=== PATIENT | female | born 1965 | race Caucasian/White ===

== ENCOUNTER → 2016-07-02 | Outpatient (CLI) | payer BC ==
--- NOTE | 2016-07-02 12:52 | MM ---
Reason for exam: history of breast cancer, mastectomy. Last mammogram was performed 6 months ago. History: Patient is postmenopausal, has history of breast cancer at age 35, has history of high-risk lesion on a previous biopsy at age 35, and had first child at age 34. High risk US biopsy breast VAD RT of the right breast, January 11, 2016. MRI-guided biopsy of the right breast, January 2007. Benign core biopsy of the right breast, January 21, 2007. Mastectomy of the left breast, November 2004. Left Mammotome Panel of the left breast, November 15, 2004. Saline implant in the left breast, 2004. Malignant lumpectomy of the left breast, March 26, 2001. High risk stereotactic core biopsy of the left breast, March 13, 2001. Radiation therapy of the left breast. Took hormonal contraceptives for 8 years beginning at age 20. Took tamoxifen for 5 years 6 months beginning at age 34. Took unspecified hormones for 11 years beginning at age 29. Physical Findings: Nurse did not find any significant physical abnormalities on exam. MG Diagnostic Mammo RT w CAD CC and MLO view(s) were taken of the right breast. Prior study comparison: January 11, 2016, right breast MG diagnostic mammo RT wo CAD. June 29, 2015, right breast MG 3d diag mammo w/cad RT. June 29, 2015, right breast US breast limited RT. June 23, 2014, right breast MG diagnostic mammo RT w CAD. May 27, 2013, right diagnostic mammogram w/CAD. The breast tissue is extremely dense which could obscure a lesion on mammography. Finding #1: Architectural distortion in the upper outer quadrant of the right breast consistent with known lumpectomy. Finding #2: There are typically benign round, diffuse/scattered and grouped calcifications in the right breast. Previous mammotome biopsy in the right breast x 2. There is no discrete abnormality. These results were verbally communicated with the patient and result sheet given to the patient on 07/02/16. ASSESSMENT: Benign, BI-RAD 2 RECOMMENDATION: Follow-up diagnostic mammogram of the right breast in 1 year.
== END | disposition home or self-care (01) ==
LOC: RADMAMWWP 10:55
PROVIDERS: ATTEND Surgery
DX: Z08 Encounter for follow-up examination after completed treatment for malignant neoplasm (principal); Z85.3 Personal history of malignant neoplasm of breast

== ENCOUNTER → 2017-07-08 | Outpatient (CLI) | payer BC ==
--- NOTE | 2017-07-08 13:03 | MM ---
Reason for exam: additional evaluation requested from prior study. Last mammogram was performed 1 year ago. History: Patient is postmenopausal, has history of breast cancer at age 35, has history of high-risk lesion on a previous biopsy at age 35, and had first child at age 34. High risk US biopsy breast VAD RT of the right breast, January 11, 2016. MRI-guided biopsy of the right breast, January 2007. Benign core biopsy of the right breast, January 21, 2007. Mastectomy of the left breast, November 2004. Left Mammotome Panel of the left breast, November 15, 2004. Saline implant in the left breast, 2004. Malignant lumpectomy of the left breast, March 26, 2001. High risk stereotactic core biopsy of the left breast, March 13, 2001. Radiation therapy of the left breast. Took hormonal contraceptives for 8 years beginning at age 20. Took tamoxifen for 5 years 6 months beginning at age 34. Took unspecified hormones for 11 years beginning at age 29. Physical Findings: Nurse did not find any significant physical abnormalities on exam. MG 3D Diag Mammo W/Cad RT CC and MLO view(s) were taken of the right breast. Prior study comparison: July 02, 2016, right breast MG diagnostic mammo RT w CAD. January 11, 2016, right breast MG diagnostic mammo RT wo CAD. Finding: There are increased round, heterogeneous, grouped/clustered calcifications in the right breast, 5cm from the nipple. Previous mammotome biopsy in the right breast x 2. New finding since July 02, 2016 and January 11, 2016. These results were verbally communicated with the patient and result sheet given to the patient on 07/08/17. ASSESSMENT: Suspicious, BI-RAD 4 RECOMMENDATION: Surgical consultation and stereotactic core biopsy of the right breast. Called Dr. Lugo with mammographic findings and has scheduled an appointment for the patient for 07/16/17 at 10:[address] Whelan. PRELIMINARY REPORT CALLED AND FAXED TO DR. WHELAN ON 07/08/17.
== END | disposition home or self-care (01) ==
LOC: RADMAMWWP 10:51
PROVIDERS: ATTEND Obstetrics & Gynecology
DX: R92.8 Other abnormal and inconclusive findings on diagnostic imaging of breast (principal)
CPT/HCPCS: 77065; G0279

== ENCOUNTER → 2017-09-09 | Day surgery (SDC) | payer BC ==
[2017-09-09 13:45] VITALS: RESP 14; TEMP 98.3; BMI 21.9
[2017-09-09 15:59] VITALS: BP 116/68; PULSE 58
--- NOTE | 2017-09-11 09:29 | MM ---
EXAMINATION TYPE: MG stereo VAD BX RT DATE OF EXAM: 09/09/2017 COMPARISON: Exams dating back to 01/11/2016 CLINICAL HISTORY: Indeterminate right breast calcifications for which stereotactic biopsy was recomme nded. TECHNIQUE: Stereotactic guided core biopsy of right breast. FINDINGS: The procedure of stereotactic guided core biopsy was explained to the patient. Benefits, a lternatives, and risks were discussed. An informed consent was then obtained. A procedural timeout was performed. [facility]. Shortness pathway was lateral medial approach, however the calcifications were close to the skin surface and unable to be performed in this direction theref ore CC from above approach was subsequently chosen. Again the calcifications were very superficial an d difficult to target, however appropriate placement was achieved after multiple attempts. 10 cc of lidocaine without epinephrine was utilized to anesthetize the skin surface and subcutaneous tissues. Prefire images were obtained ensuring accurate localization. A vacuum assisted biopsy gun was used to obtain 4 core samples. The patient tolerated the procedure well without any immediate complication. The patient was kept in the radiology department for short stay after the procedure and then discharged home in stable condi tion. Few targeted calcifications are identified in specimen mammogram. Initial biopsy marker did no t appear to the poorly therefore a second biopsy marker adjacent to this was placed. On postprocedura l images to adjacent biopsy markers are seen indicating the site of biopsy. Post biopsy mammogram tasia ws the biopsy markers to appear in satisfactory position relative to the targeted area of concern on the preprocedure images. IMPRESSION: SUCCESSFUL, UNCOMPLICATED STEREOTACTIC GUIDED CORE BIOPSY OF SUPERFICIAL OR PELVIC CALCIFICATIONS WIT HIN THE RIGHT BREAST, FULL PATHOLOGY RESULTS TO FOLLOW. NOTE THAT ONLY FEW CALCIFICATIONS WERE IDENT IFIED IN THE SPECIMEN RADIOGRAPH, HOWEVER GIVEN THEIR SUPERFICIAL LOCATION AND PROXIMITY OF THE [facility] [place] [facility] TO THE SKIN SURFACE NO ADDITIONAL CORES WERE OBTAINED.
== END ==
LOC: RADMAMWWP 13:05
PROVIDERS: ATTEND Student in an Organized Health Care Education/Training Program
DX: R92.1 Mammographic calcification found on diagnostic imaging of breast (principal); Z85.3 Personal history of malignant neoplasm of breast; Z90.12 Acquired absence of left breast and nipple
CPT/HCPCS: 88305; 19081; A4648; J2001

== ENCOUNTER → 2018-03-17 | Outpatient (CLI) | payer BC ==
--- NOTE | 2018-03-17 11:31 | MM ---
Reason for exam: follow-up at short interval from prior study. Last mammogram was performed 8 months ago. History: Patient is postmenopausal, has history of breast cancer at age 35, has history of high-risk lesion on a previous biopsy at age 35, and had first child at age 34. Benign MG stereo VAD BX RT of the right breast, September 09, 2017. High risk US biopsy breast VAD RT of the right breast, January 11, 2016. MRI-guided biopsy of the right breast, January 2007. Benign core biopsy of the right breast, January 21, 2007. Mastectomy of the left breast, November 2004. Left Mammotome Panel of the left breast, November 15, 2004. Saline implant in the left breast, 2004. Malignant lumpectomy of the left breast, March 26, 2001. High risk stereotactic core biopsy of the left breast, March 13, 2001. Radiation therapy of the left breast. Took hormonal contraceptives for 8 years beginning at age 20. Took tamoxifen for 5 years 6 months beginning at age 34. Took unspecified hormones for 11 years beginning at age 29. Physical Findings: Nurse did not find any significant physical abnormalities on exam. MG 3D Diag Mammo W/Cad RT CC, MLO, and spot compression CC view(s) were taken of the right breast. Prior study comparison: July 08, 2017, right breast MG 3d diag mammo w/cad RT. July 02, 2016, right breast MG diagnostic mammo RT w CAD. The breast tissue is heterogeneously dense. This may lower the sensitivity of mammography. Benign calcifications in the left breast. Multiple right biopsy markers noted. No suspicious abnormality. Post biopsy change upper outer quadrant. No significant new findings when compared with previous films. These results were verbally communicated with the patient and result sheet given to the patient on 03/17/18. ASSESSMENT: Benign, BI-RAD 2 RECOMMENDATION: Routine screening mammogram of both breasts in 4 months. Back on schedule.
== END | disposition home or self-care (01) ==
LOC: RADMAMWWP 10:20
PROVIDERS: ATTEND Student in an Organized Health Care Education/Training Program
DX: Z08 Encounter for follow-up examination after completed treatment for malignant neoplasm (principal); Z85.3 Personal history of malignant neoplasm of breast
CPT/HCPCS: 77061; 77065

== ENCOUNTER → 2019-09-23 | Outpatient (CLI) | payer BC ==
--- NOTE | 2019-09-28 10:01 | MM ---
Reason for exam: additional evaluation requested from prior study. Last mammogram was performed 1 year and 6 months ago. History: Patient is postmenopausal, has history of breast cancer at age 35, has history of high-risk lesion on a previous biopsy at age 35, and had first child at age 34. Benign MG stereo VAD BX RT of the right breast, September 09, 2017. High risk US biopsy breast VAD RT of the right breast, January 11, 2016. MRI-guided biopsy of the right breast, January 2007. Benign core biopsy of the right breast, January 21, 2007. Mastectomy of the left breast, November 2004. Left Mammotome Panel of the left breast, November 15, 2004. Saline implant in the left breast, 2004. Malignant lumpectomy of the left breast, March 26, 2001. High risk stereotactic core biopsy of the left breast, March 13, 2001. 2 radiation therapies of the left breast. Took hormonal contraceptives for 8 years beginning at age 20. Took tamoxifen for 5 years 6 months beginning at age 34. Took unspecified hormones for 11 years beginning at age 29. Physical Findings: Nurse did not find any significant physical abnormalities on exam. MG 3D Diag Mammo W/Cad RT CC and MLO view(s) were taken of the right breast. Prior study comparison: March 17, 2018, right breast MG 3d diag mammo w/cad RT. July 08, 2017, right breast MG 3d diag mammo w/cad RT. The breast tissue is extremely dense which could obscure a lesion on mammography. Benign calcifications in the right breast. No new suspicious abnormality. Lateral posterior depth asymmetry is stable back to 2017. Multiple right biopsies. No significant new findings when compared with previous films. These results were verbally communicated with the patient and result sheet given to the patient on 09/23/19. ASSESSMENT: Benign, BI-RAD 2 RECOMMENDATION: Follow-up diagnostic mammogram of both breasts in 1 year.
== END | disposition home or self-care (01) ==
LOC: RADMAMWWP 14:07
PROVIDERS: ATTEND Obstetrics & Gynecology
DX: Z85.3 Personal history of malignant neoplasm of breast (principal)
CPT/HCPCS: 77061; 77065

== ENCOUNTER → 2019-09-30 | Outpatient (CLI) | payer BC ==
[2019-09-30 13:09] VITALS: BP 115/76; PULSE 69; RESP 18; TEMP 98.2
--- NOTE | 2019-09-30 14:01 | P.GSHP ---
History of Present Illness H&P Date: 09/30/19 Chief Complaint: left breast cancer Estrella is a 54 year old white female with an extensive history related to her breast. She is status post left breast lumpectomy and radiation therapy in 2000. She did not have any sentinel node biopsy on this occasion, she was started on tamoxifen This was for ductal carcinoma in situ. 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 She had a left breast mastectomy and subpectoral implant reconstruction node sampling under her arm. There is no cancer in the lymph nodes. She is not taking any tamoxifen at this time. She has had multiple right breast biopsies which have always been benign. She had an open right breast biopsy in 2016 which revealed focal atypical lobular hyperplasia associated with calcifications. She most recently had a right breast mammogram performed on . This revealed extremely dense breast tissue with benign-appearing calcifications in the right breast. This was felt to be benign BIRADS 2 and follow-up mammogram of the right breast in 1 year was recommended. She has not had any genetic testing done. She does not feel any lumps masses or nodules in her right breast, and there is no evidence of any recurrence in the left chest wall. She is complaining of pain in her back, it feels tender along her spine. She has not seen anyone for this. She has no complaints of trauma. Patient took hormones for about 3 years to get , and has concerns the tumor may have been related to the hormones. Family History: 1. mother: uterine 2. father: melanoma 3. patient: left breast DCIS Hormonal history: Menarche:14 M1, breast fed: short time, age at : 34 menopause: hysterectomy left ovaries, done for heavy periods BCP: 7 years; feritility hormones 3 years hormones: none at this time Surgical History: 1. left breast lumpectomy 2. left mastectomy and SNB 3. hysterectomy 4. right breast core biopsies (about 5) Medical History: 1. none Social History: smoke: none alcohol: none drugs: none - Constitutional Constitutional: Reports sweats - EENT Eyes: denies blurred vision, denies pain Ears: deny: decreased hearing, tinnitus Ears, nose, mouth and throat: Denies headache, Denies sore throat - Breasts Breasts: bilateral: as per HPI - Cardiovascular Cardiovascular: Denies chest pain, Denies shortness of breath - Respiratory Respiratory: Denies cough, Denies 7 - Gastrointestinal Gastrointestinal: Denies abdominal pain, Denies diarrhea, Denies nausea, Denies vomiting - Genitourinary (Female) Genitourinary: Denies dysuria, Denies hematuria - Menstruation Menstruation: Reports as per HPI - Musculoskeletal Comment: back pain - Integumentary Integumentary: Denies pruritus, Denies rash - Neurological Neurological: Denies numbness, Denies weakness - Psychiatric Psychiatric: Reports anxiety - Endocrine Endocrine: Denies fatigue, Denies weight change - Hematologic/Lymphatic Comment: none - Allergic/Immunologic Comment: none Past Medical History Past Medical History: Cancer, GERD/Reflux, Thyroid Disorder Additional Past Medical History / Comment(s): hx. breast cancer w/radiation/lumpectomy 2000; left breast mastectomy 2005-left breast. Hypothyroidism History of Any Multi-Drug Resistant Organisms: None Reported Past Surgical History: Breast Surgery, Hysterectomy, Orthopedic Surgery Additional Past Surgical History / Comment(s): left breast lumpectomy 2000, then mastectomy left 2005, bilateral carpal tunnel repair, laparoscopy for issues with fallopian tubes, vaginal hysterectomy Past Anesthesia/Blood Transfusion Reactions: Previous Problems w/ Anesthesia, Motion Sickness, Postoperative Nausea & Vomiting (PONV) Additional Past Anesthesia/Blood Transfusion Reaction / Comment(s): developed pulmonary edema after lumpectomy-2000. No transfusion to date Past Psychological History: Anxiety Smoking Status: Never smoker Past Alcohol Use History: Occasional Past Drug Use History: None Reported - Past Family History Mother Family Medical History: Cancer, Hypertension Additional Family Medical History / Comment(s): cervical cancer in 20's; Father Family Medical History: Cancer, Coronary Artery Disease (CAD), Diabetes Mellitus Additional Family Medical History / Comment(s): Type 2 DM, deceases at age 76 from malignant melanoma Medications and Allergies Home Medications Medication Instructions Recorded Confirmed Type Amitriptyline HCl [Elavil] 10 mg PO HS 01/10/16 09/30/19 History Levothyroxine Sodium [Synthroid] 75 mcg PO DAILY 01/10/16 09/30/19 History RABEprazole SODIUM [Aciphex] 20 mg PO AC-[id number] 01/10/16 09/30/19 History ALPRAZolam [Xanax] 0.25 mg PO DAILY PRN 09/08/17 09/30/19 History Allergies Allergy/AdvReac Type Severity Reaction Status Date / Time No Known Allergies Allergy Verified 09/30/19 13:08 Surgical - Exam Vital Signs Temp Pulse Resp BP Pulse Ox 98.2 F 69 18 115/76 99 09/30/19 13:05 09/30/19 13:05 09/30/19 13:05 09/30/19 13:05 09/30/19 13:05 BMI 22.9 - General well developed, well nourished, no distress - Eyes normal ocular movement - ENT no hearing loss - Neck no masses, trachea midline - Respiratory normal respiratory effort, clear to auscultation - Cardiovascular Rhythm: regular Heart Sounds: normal: S1, S2 - Abdomen Abdomen: soft, non tender, no guarding, no rigid, no rebound - Integumentary normal turgor - Neurologic no disoriented, no combative - Musculoskeletal pain in the mid thoracic region over the spine, no radiation normal gait - Psychiatric oriented to time, oriented to person, oriented to place, speech is normal, memory intact breast exam: BRA 36B inspection: Asymmetry of the breast related to left breast mastectomy with reconstruction, well-healed scars on the left side, no nipple inversion on the right Palpation: Right breast multiple positional exam fibrocystic changes no dominant masses or nodules of concern Right axilla: No adenopathy of concern Left chest wall: Status post left breast subpectoral reconstruction no evidence of recurrent cancer Left axilla: No adenopathy of concern Right breast is larger than the left breast, patient has back pain, patient has difficulty fitting clothing secondary to be asymmetry this causes anxiety Results Mammogram from [id number] reviewed this is benign BIRADS 2 Assessment and Plan Assessment: Impression: 1. Patient status post left mastectomy for DCIS 2. Patient with vaginal dryness presently questioning whether she should use Vagifem 3. Pain along spine 4. Right breast fibrocystic disease 5. Asymmetry of the breast Plan: 1. Continue close surveillance of right breast with mammogram in 1 year 2. Consider plastic surgical consultation secondary to asymmetry of the breast 3. Would not recommend Vagifem secondary to the estrogen component and the tumor in the left breast being ER/NH positive 4. Consider MRI of the thoracic spine secondary to the back pain/this will be thoracic spine MRI with and without gadolinium CC; Dr. Reincke encounter 50 minutes > 50% of time in planning and counselling
== END | disposition home or self-care (01) ==
LOC: WWCWWP 12:55
PROVIDERS: ATTEND Surgery
DX: Z53.9 Procedure and treatment not carried out, unspecified reason (principal)

== ENCOUNTER → 2019-10-26 | Outpatient (CLI) | payer BC ==
--- NOTE | 2019-10-26 12:36 | MR ---
MR thoracic spine with and without contrast HISTORY: Thoracic spine pain, M 54.6 Multiplanar multisequence and postcontrast images obtained through the thoracic spine following 5.5 c c Gadavist IV Comparisons Thoracic vertebral bodies show preserved height, alignment, and bone marrow signal. There is no evide nt spinal stenosis or foraminal encroachment. Multilevel Schmorl's node formation is present. Some lo ss of disc height signal is present at intervertebral levels consistent with disc desiccation and deg enerative disc disease, there is endplate discogenic marrow signal change. Thoracic cord signal is no rmal. Facet arthropathy changes are present especially at T11-12 causing some posterior lateral mass effect on the thecal sac. T7-8 shows a small posterior disc herniation. Small posterior disc bulge present at T5-6 causes sligh t left anterior lateral mass effect on the thecal sac. No abnormal enhancement following contrast administration. IMPRESSION: Degenerative disc disease and facet arthropathy. No significant spinal stenosis.
== END | disposition home or self-care (01) ==
LOC: RADMRIMAIN 09:31
PROVIDERS: ATTEND Surgery
DX: M51.34 Other intervertebral disc degeneration, thoracic region (principal)
CPT/HCPCS: 72157; A9585

== ENCOUNTER → 2019-10-28 | Outpatient (CLI) | payer BC ==
[2019-10-28 09:17] VITALS: BP 119/77; PULSE 56; RESP 18; TEMP 97.9
--- NOTE | 2019-10-28 09:53 | P.PN ---
Progress Note - Text Progress Note Date: 10/28/19 Lily comes in today for review of the results of her MRI thoracic spine. This was reviewed with Dr. Frederick. There was degenerative disc disease and facet arthropathy . Facet arthropathy changes were noted at T11/12 causing some posterior lateral mass effect on the thecal sac. T7-8 showed a small posterior disc herniation. Small posterior disc bulge is present at T5-C6 causing slight left anterior lateral mass effect on the thecal sac. No abnormal enhancement was noted. The patient states at this time her discomfort in her back has improved. She is going to discuss this with her primary care physician and possibly consider consultation with a neurologist. Patient no evidence of any metastatic disease. The patient will follow up here in one year. We have also discussed the fact that she is not taking any hormone therapy. I have suggested that it would be clark to at minimum have an appointment with medical oncology. 1. Appointment with medical oncology/? any role for hormonal therapy 2. Follow up with Dr. Miller 3. Follow up in 1 year CC: DR. Miller CC: 15 minutes
== END | disposition home or self-care (01) ==
LOC: WWCWWP 09:06
PROVIDERS: ATTEND Surgery
DX: Z12.31 Encounter for screening mammogram for malignant neoplasm of breast (principal)

== ENCOUNTER → 2020-09-27 | Outpatient (CLI) | payer BC ==
--- NOTE | 2020-09-27 13:18 | MM ---
Reason for exam: additional evaluation requested from prior study. Last mammogram was performed 1 year ago. History: Patient is postmenopausal, has history of breast cancer at age 35, has history of high-risk lesion on a previous biopsy at age 35, and had first child at age 34. Benign MG stereo VAD BX RT of the right breast, September 09, 2017. High risk US biopsy breast VAD RT of the right breast, January 11, 2016. MRI-guided biopsy of the right breast, January 2007. Benign core biopsy of the right breast, January 21, 2007. Mastectomy of the left breast, November 2004. Left Mammotome Panel of the left breast, November 15, 2004. Saline implant in the left breast, 2004. Malignant lumpectomy of the left breast, March 26, 2001. High risk stereotactic core biopsy of the left breast, March 13, 2001. 2 radiation therapies of the left breast. Took hormonal contraceptives for 8 years beginning at age 20. Took tamoxifen for 5 years 6 months beginning at age 34. Took unspecified hormones for 11 years beginning at age 29. Physical Findings: Nurse did not find any significant physical abnormalities on exam. MG 3D Diag Mammo W/Cad RT CC and MLO view(s) were taken of the right breast. Prior study comparison: September 23, 2019, right breast MG 3d diag mammo w/cad RT. March 17, 2018, right breast MG 3d diag mammo w/cad RT. The breast tissue is extremely dense which could obscure a lesion on mammography. No significant new findings when compared with previous films. These results were verbally communicated with the patient and result sheet given to the patient on 09/27/20. ASSESSMENT: Benign, BI-RAD 2 RECOMMENDATION: Routine screening mammogram of both breasts in 1 year.
== END | disposition home or self-care (01) ==
LOC: RADMAMWWP 10:59
PROVIDERS: ATTEND Obstetrics & Gynecology
DX: R92.2 Inconclusive mammogram (principal); Z85.3 Personal history of malignant neoplasm of breast; Z78.0 Asymptomatic menopausal state; Z90.12 Acquired absence of left breast and nipple
CPT/HCPCS: 77061; 77065

== ENCOUNTER → 2020-12-22 | Outpatient (CLI) | payer BC ==
[2020-12-22 09:15] VITALS: BP 125/79; PULSE 61; RESP 16; TEMP 97.9
--- NOTE | 2020-12-22 10:07 | P.PN ---
Subjective Progress Note Date: 12/22/20 Principal diagnosis: DCIS left breast Estrella is a 54 year old white female with an extensive history related to her breast. She is status post left breast lumpectomy and radiation therapy in 2000 at the age of 34. She did not have any sentinel node biopsy on this occ asion, she was started on tamoxifen This was for ductal carcinoma in situ. 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 She had a left breast mastectomy and subpectoral implant reconstruction node sampling under her arm; in 2004. There was no cancer in the lymph nodes. She is not taking any tamoxifen at this time. She has had multiple right breast biopsies which have always been benign. She most recently had a right breast mammogram performed on 09-27-20. This revealed extremely dense breast tissue with benign-appearing calcifications in the right breast. This was felt to be benign BIRADS 2 and follow-up mammogram of the right breast in 1 year was recommended. She has not had any genetic testing done. She does not feel any lumps masses or nodules in her right breast, and there is no evidence of any recurrence in the left chest wall. She has a complaint of burning/discomfort in her lower back. She has had this worked up and has been seen by neurology with no explanation. She last saw Dr. Calvin about one year ago and discussed genetic testing. The patient opted not to have it done. He did not recommend any hormonal therapy. Patient took hormones for about 3 years to get , and has concerns the tumor may have been related to the hormones. Family History: 1. mother: uterine 2. father: melanoma 3. patient: left breast DCIS Hormonal history: Menarche:14 M1, breast fed: short time, age at : 34 menopause: hysterectomy left ovaries, done for heavy periods BCP: 7 years; feritility hormones 3 years hormones: none at this time Surgical History: 1. left breast lumpectomy 2. left mastectomy and SNB 3. hysterectomy 4. right breast core biopsies (about 5) 5. trigger thumb Medical History: 1. none Social History: smoke: none alcohol: none drugs: none Review of systems: HEENT: Negative Lungs: Negative Heart: Negative GI: Negative : As noted in HPI Musculoskeletal: Sensation of burning in the lower back/skin area patient is seen neurology for this Neurologic: Sensation of burning and lower back patient following with neurology Hematologic: Negative ALLERGIES: Negative Psychiatric: Negative Objective - Vital Signs Vital signs: Vital Signs Temp 97.9 F 12/22/20 09:10 Pulse 61 12/22/20 09:10 Resp 16 12/22/20 09:10 BP 125/79 12/22/20 09:10 Pulse Ox 97 12/22/20 09:10 Intake & Output 12/21/20 12/22/20 12/22/20 18:59 06:59 18:59 Weight 55.338 kg - Exam BMI 22.7 - Constitutional General appearance: Present: cooperative - EENT Eyes: Present: EOMI ENT: Present: hearing grossly normal - Neck Neck: Present: normal ROM - Respiratory Respiratory: bilateral: CTA - Cardiovascular Rhythm: regular Heart sounds: normal: S1, S2 - Gastrointestinal General gastrointestinal: Present: soft - Integumentary Integumentary: Present: normal turgor - Musculoskeletal Musculoskeletal: Present: gait normal - Psychiatric Psychiatric: Present: A&O x's 3, appropriate affect, intact judgment & insight - Additional findings Additional findings: Breast Exam: BRA: 36B inspection: Postop changes left breast from prior mastectomy and reconstruction, grade 2 ptosis right breast Palpation: Right breast: Multiple positional exam dense breasts no dominant masses or nodules of concern Right axilla: No adenopathy of concern Left breast: Chest wall no evidence of recurrent cancer, status post mastectomy and reconstruction. Left axilla: No adenopathy of concern Assessment and Plan Assessment: Impression: 1. Patient status post left breast mastectomy for DCIS in 2004, no evidence of recurrent cancer Plan: 1. Repeat right breast mammogram in 1 year with physician exam at that time 2. Patient is not taking any hormonal therapy at this time has followed with medical oncology 3. Patient is opted not to have genetic testing performed CC: Dr. Licona
== END ==
LOC: WWCWWP 09:02
PROVIDERS: ATTEND Surgery
DX: Z08 Encounter for follow-up examination after completed treatment for malignant neoplasm (principal); Z90.12 Acquired absence of left breast and nipple; Z85.3 Personal history of malignant neoplasm of breast

== ENCOUNTER → 2021-10-25 | Outpatient (CLI) | payer BC ==
--- NOTE | 2021-10-25 11:05 | MM ---
Reason for Exam: Hx of breast cancer, mastectomy. Last screening mammogram was performed 12 month(s) ago. Patient History: Menarche at age 10. First Full-Term at age 34. Late child-bearing (after 29). Hysterectomy at age 45. Postmenopausal. Breast cancer, left, age 35. Hormonal Contraceptives for 8 years from age 20 until age 28. Tamoxifen for 5 years, 6 months, from age 34 until age 40. Unspecified Hormone for 11 years from age 29 until age 40. 01/21/2007, Benign Core Biopsy on the right side. 01/2007, Core Biopsy on the Right side. 11/2004, Mastectomy on the Left side. 09/09/2017, Benign Core Biopsy on the right side. 01/11/2016, High risk Core Biopsy on the right side. 11/15/2004, Core Biopsy on the Left side. 03/26/2001, Malignant Lumpectomy on the left side. 03/13/2001, High risk Stereotactic Core Biopsy on the left side. Radiation Therapy, left. Radiation Therapy, left. 2004, Implant on the left side. Prior Study Comparison: 03/17/2018 Right Diagnostic Mammogram, [facility]. 09/23/2019 Right Diagnostic Mammogram, [facility]. 09/27/2020 Right Diagnostic Mammogram, [facility]. Tissue Density: Right: The breast tissue is heterogeneously dense. This may lower the sensitivity of mammography. Findings: Analyzed By CAD. Postoperative changes in the right breast. Benign calcifications are stable. Microclip marker is noted. Overall Assessment: Benign, BI-RAD 2 Management: Diagnostic Mammogram of the right breast in 1 year. A clinical breast exam by your physician is recommended on an annual basis and results should be correlated with mammographic findings. This exam should not preclude additional follow-up of suspicious palpable abnormalities. Results were given to the patient verbally at the time of exam. Electronically signed and approved by: Alexis Guerra M.D. Radiologis
== END | disposition home or self-care (01) ==
LOC: RADMAMWWP 10:18
PROVIDERS: ATTEND Surgery
DX: R92.8 Other abnormal and inconclusive findings on diagnostic imaging of breast (principal); Z85.3 Personal history of malignant neoplasm of breast; Z78.0 Asymptomatic menopausal state
CPT/HCPCS: 77061; 77065

== ENCOUNTER → 2022-11-05 | Outpatient (CLI) | payer BC ==
--- NOTE | 2022-11-05 10:01 | MM ---
Reason for Exam: Hx of breast cancer, mastectomy. Last mammogram was performed 1 year(s) and 1 month(s) ago. Patient History: Menarche at age 10. First Full-Term at age 34. Late child-bearing (after 30). Hysterectomy at age 45. Postmenopausal. Breast cancer, left, age 35. Hormonal Contraceptives for 8 years from age 20 until age 28. Tamoxifen for 5 years, 6 months, from age 34 until age 40. Unspecified Hormone for 11 years from age 29 until age 40. 01/21/2007, Benign Core Biopsy on the right side. 01/2007, Core Biopsy on the Right side. 11/2004, Mastectomy on the Left side. 09/09/2017, Benign Core Biopsy on the right side. 01/11/2016, High risk Core Biopsy on the right side. 11/15/2004, Core Biopsy on the Left side. 03/26/2001, Malignant Lumpectomy on the left side. 03/13/2001, High risk Stereotactic Core Biopsy on the left side. Radiation Therapy, left. Radiation Therapy, left. 2004, Implant on the left side. Prior Study Comparison: 09/23/2019 Right Diagnostic Mammogram, [facility]. 09/27/2020 Right Diagnostic Mammogram, [facility]. 10/25/2021 Right MG 3D diag mammo w/cad RT, [facility]. Tissue Density: Right: The breast tissue is extremely dense which could obscure a lesion on mammography. Findings: Analyzed By CAD. Post procedural changes. No new suspicious masses, calcifications or distortions. Overall Assessment: Benign, BI-RAD 2 Management: Screening Mammogram of the right breast. Results were given to the patient verbally at the time of exam. Patient should continue monthly self-breast exams. A clinical breast exam by your physician is recommended on an annual basis. This exam should not preclude additional follow-up of suspicious palpable abnormalities. Note on Dee scores and lifetime risk: 1. A Dee score greater than 3% is considered moderate risk. If this is the case, consider specialist referral to assess eligibility for a risk reducing agent. 2. If overall lifetime risk for the development of breast cancer is 20% or higher, the patient may qualify for future screening with alternating mammogram and breast MRI. Electronically signed and approved by: Brodie Peralta DO
== END | disposition home or self-care (01) ==
LOC: RADMAMWWP 09:27
PROVIDERS: ATTEND Obstetrics & Gynecology
DX: R92.8 Other abnormal and inconclusive findings on diagnostic imaging of breast (principal); Z85.3 Personal history of malignant neoplasm of breast; Z98.82 Breast implant status; Z78.0 Asymptomatic menopausal state
CPT/HCPCS: 77061; 77065

== ENCOUNTER → 2024-01-06 | Outpatient (CLI) | payer BC ==
--- NOTE | 2024-01-06 11:00 | MM ---
Reason for Exam: Hx of breast cancer, mastectomy. Last mammogram was performed 1 year(s) and 2 month(s) ago. Patient History: Menarche at age 10. First Full-Term at age 34. Late child-bearing (after 30). Hysterectomy at age 45. Postmenopausal. Breast cancer, left, age 35. Hormonal Contraceptives for 8 years from age 20 until age 28. Tamoxifen for 5 years, 6 months, from age 34 until age 40. Unspecified Hormone for 11 years from age 29 until age 40. 01/21/2007, Benign Core Biopsy on the right side. 01/2007, Core Biopsy on the Right side. 11/2004, Mastectomy on the Left side. 09/09/2017, Benign Core Biopsy on the right side. 01/11/2016, High risk Core Biopsy on the right side. 11/15/2004, Core Biopsy on the Left side. 03/26/2001, Malignant Lumpectomy on the left side. 03/13/2001, High risk Stereotactic Core Biopsy on the left side. Radiation Therapy, left. Radiation Therapy, left. 2004, Implant on the left side. Prior Study Comparison: 09/27/2020 Right Diagnostic Mammogram, [facility]. 10/25/2021 Right MG 3D diag mammo w/cad RT, [facility]. 11/05/2022 Right MG 3D diag mammo w/cad RT, [facility]. Tissue Density: Right: The breasts are extremely dense, which lowers the sensitivity of mammography. Findings: Analyzed By CAD. Postoperative changes noted. No evidence for new mass or new area of distortion. No suspicious microcalcifications present. Overall Assessment: Benign, BI-RAD 2 Management: Screening Mammogram of the right breast in 1 year. . Results were given to the patient verbally at the time of exam. Patient should continue monthly self-breast exams. A clinical breast exam by your physician is recommended on an annual basis. This exam should not preclude additional follow-up of suspicious palpable abnormalities. Note on Dee scores and lifetime risk: 1. A Dee score greater than 3% is considered moderate risk. If this is the case, consider specialist referral to assess eligibility for a risk reducing agent. 2. If overall lifetime risk for the development of breast cancer is 20% or higher, the patient may qualify for future screening with alternating mammogram and breast MRI. Electronically signed and approved by: Alexis Guerra M.D. Radiologis
== END | disposition home or self-care (01) ==
LOC: RADMAMWWP 10:32
PROVIDERS: ATTEND Family Medicine
DX: Z85.3 Personal history of malignant neoplasm of breast
CPT/HCPCS: 77061; 77065

== ENCOUNTER → 2024-02-17 | Outpatient (CLI) | payer BC ==
--- NOTE | 2024-02-17 13:07 | BD ---
EXAMINATION TYPE: Axial Bone Density DATE OF EXAM: 02/17/2024 CLINICAL HISTORY: 58 years old Female. ICD-10 CODE: Z85.3 PERSONAL HISTORY OF MALIGNANT NEOPLASM OF BR Height: 62 Weight: 118 FRAX RISK QUESTIONS: Alcohol (3 or more units per day): no Family History (Parent hip fracture): no Glucocorticoids (More than 3mos): no (Ex: prednisone, prednisolone, methylprednisolone, dexamethasone, and hydrocortisone). History of Fracture in Adulthood: no Secondary Osteoporosis: 1. Type 1 Diabetes: no 2. Hyperthyroidism: no 3. Menopause before 45: no 4. Malnutrition: no 5. Chronic liver disease: no Rheumatoid Arthritis: no Current Tobacco Use: no RISK FACTORS HISTORY OF: Surgery to Spine/Hip(right/left)/Wrist (right/left): no MEDICATIONS: Thyroid Medications: levothyroxine How Lon years EXAM MEASUREMENTS: Bone mineral densitometry was performed using the [employer] System. Bone mineral density as measured about the Lumbar spine is: ----- L1-L4(G/cm2): 1.116 T Score Values are as follows: ----- L1: -1.3 ----- L2: -1.0 ----- L3: -0.6 ----- L4: 0.3 ----- L1-L4: -0.5 Z Score Values are as follows: ----- L1: 0.3 ----- L2: 0.5 ----- L3: 0.9 ----- L4: 1.8 ----- L1-L4: 1.0 Bone mineral density : baseline Bone mineral density about the R hip (g/cm2): 0.849 Bone mineral density about the L hip (g/cm2): 0.793 T Score values are as follows: -----R Neck: -1.6 -----L Neck: -2.0 -----R Total: -1.3 -----L Total: -1.7 Z Score values are as follows: -----R Neck: -0.2 -----L Neck: -0.5 -----R Total: -0.1 -----L Total: -0.5 Bone mineral density : baseline FRAX%s: The graph provided illustrates a 8.7% chance for a major osteoporotic fx and a 1.2% chance fo r the hips probability for fx in 10 years time. IMPRESSION: Osteopenia (T Score between -2.5 and -1). There is slightly increased risk of fracture and the patient may be considered for treatment. Re-Screen 2-5 years. NOTE: T-SCORE=SD OF THE YOUNG ADULT MEAN. [facility], , 02/17/2024 1:05 PM
== END | disposition home or self-care (01) ==
LOC: RADBDWWP 10:51
PROVIDERS: ATTEND Obstetrics & Gynecology
CPT/HCPCS: 77080